=== PATIENT | female | born 1980 | race Caucasian/White ===

== ENCOUNTER 2021-06-16 09:18 | Outpatient (CLI) | payer BC, SELFPAY | END 2021-06-16 09:19 | disposition home or self-care (01) | LOC: CSHMAMMO 09:18 | PROVIDERS: ATTEND Obstetrics & Gynecology | DX: Z12.31 Encounter for screening mammogram for malignant neoplasm of breast (principal); Z80.3 Family history of malignant neoplasm of breast | CPT/HCPCS: 77063; 77067 ==